=== PATIENT | female | born 1985 | race Caucasian/White ===

== ENCOUNTER 2021-07-14 11:14 | Inpatient (IN) ==
[2021-07-14] MEDS ORDERED: BUTORPHANOL 2 MG/ML VIAL IV PRN (12:24)
[2021-07-14] MEDS ORDERED: MEPERIDINE 50 MG/1 ML VIAL IV PRN (12:24)
[2021-07-14] MEDS ORDERED: ONDANSETRON 4 MG/2 ML VIAL IV PRN (12:24)
[2021-07-14 12:52] LABS: Basophils # 0.1 10*3/uL (0.0-0.2); Basophils % 0.4 % (0.0-0.8); Eosinophils # 0.1 10*3/uL (0.0-0.87); Eosinophils % 0.4 % (0.00-10.9); Hematocrit 30.4 VOL% (35.7-47.0); Hemoglobin 10.5 GM/DL (12.0-16.0); Immature Granulocytes % 2.4 %; Immature Granulocytes Absolute 0.33 #; Lymphocytes # 1.6 10*3/uL (1.4-4.0); Lymphocytes % 11.6 % (21.3-54.2); Mean Corpuscular HGB Conc 34.5 GM/DL (32-36); Mean Corpuscular Volume 90.2 FL (87-102); Mean Platelet Volume 9.9 FL (9.6-12.0); Neutrophils % 79.2 % (38.7-73.9); Platelet Count 230 T/CUMM (130-400); Red Blood Count 3.37 MC/CUMM (3.8-5.5); Red Cell Distribution Width 15.3 % (9.3-17.3); White Blood Count 13.8 T/CUMM (4-12)
[2021-07-14] MEDS: LACTATED RINGERS 1,000 ML IV SCH ×3 (12:57→18:27)
[2021-07-14] MEDS ORDERED: OXYTOCIN/LR 20 UNIT/1,000 ML BAG IV SCH (13:00)
[2021-07-14 13:45] LABS: Hepatitis B Surface Ag Quant 0.21 Index; Hepatitis B Surface Ag Result Non-Reactive (NonReactive)
[2021-07-14 13:55] LABS: Alanine Aminotransferase 18 U/L (13-56); Albumin 2.3 G/DL (3.4-5.0); Alkaline Phosphatase 186 U/L (45-117); Aspartate Amino Transferase 14 U/L (0-37); Bilirubin,Total < 0.39 MG/DL (0.20-1.00); Blood Urea Nitrogen 6 MG/DL (7-18); Carbon Dioxide 23 MMOL/L (21-32); Estimated Glom Filtration Rate 117 ML/MIN; Glucose 101 MG/DL (74-106); Osmolality,Calculated 280.1 MOS/KG (273-304); Potassium 2.8 MMOL/L (3.5-5.1); Sodium 142 MMOL/L (136-145); Total Protein 5.9 G/DL (6.4-8.2)
[2021-07-14] MEDS ORDERED: CITRIC ACID/SODIUM CITRATE 30 ML UDCUP PO ONE (13:56)
[2021-07-14] MEDS ORDERED: FAMOTIDINE 20 MG/2 ML VIAL IV ONE (13:56)
[2021-07-14] MEDS ORDERED: ePHEDrine 50 MG/ML VIAL IV PRN (13:57)
[2021-07-14] MEDS ORDERED: NALOXONE 0.4 MG/ML VIAL IV PRN (13:57)
[2021-07-14] MEDS ORDERED: ONDANSETRON 4 MG/2 ML VIAL IV ONE (13:57)
[2021-07-14] MEDS ORDERED: diphenhydrAMINE 50 MG/1 ML VIAL IV PRN (13:57)
[2021-07-14 14:15] LABS: HIV Antigen/Antibody Result Nonreactive (Nonreactive)
[2021-07-14] MEDS: fentaNYL 2 MCG/ROPIV 0.2% EPID 100 ML EPIDURAL SCH ×2 (14:45→22:42)
[2021-07-14 16:03] LABS: Bilirubin,Urine Negative (Negative); Blood, Urine Negative (Negative); Glucose,Urine (UA) Negative (Negative); Ketones,Urine Negative (Negative); Mucus,Urine Occasional /LPF (Occasional); Nitrite,Urine Negative (Negative); Protein,Urine Negative; Urine Appearance CLEAR (Clear); Urine Color Straw (Yellow); Urine Specific Gravity 1.003 (1.001-1.035); Urine Urobilinogen < 2.0 EU/DL (0.2-1.0)
[2021-07-14] MEDS: POTASSIUM CHLORIDE 20 MEQ TABLET PO PRN ×3 (16:07→23:08)
[2021-07-14] MEDS ORDERED: OXYTOCIN/LR 20 UNIT/1,000 ML BAG IV ONE (20:05)
[2021-07-14] MEDS ORDERED: TRANEXAMIC ACID 1,000 MG/10 ML VIAL ONE (20:05)
[2021-07-14] MEDS ORDERED: miSOPROStoL 200 MCG TABLET ONE (20:05)
[2021-07-14] MEDS ORDERED: CARBOPROST TROMETHAMINE 250 MCG/ML AMP IM ONE (20:06)
[2021-07-14] MEDS ORDERED: METHYLERGONOVINE 0.2 MG/1 ML AMP ONE (20:06)
[2021-07-14] MEDS ORDERED: SODIUM CHLORIDE 0.9% 100 ML IV ONE (20:08)
[2021-07-14] MEDS ORDERED: ACETAMINOPHEN 500 MG TABLET PO PRN (22:12)
[2021-07-15] MEDS: fentaNYL 2 MCG/ROPIV 0.2% EPID 100 ML EPIDURAL SCH (00:30)
[2021-07-15] MEDS: LACTATED RINGERS 1,000 ML IV SCH ×2 (00:34→04:04)
[2021-07-15] MEDS: POTASSIUM CHLORIDE 20 MEQ TABLET PO PRN (01:27)
[2021-07-15] MEDS ORDERED: LIDOCAINE 1% 50 ML VIAL ONE (04:20)
[2021-07-15 04:41] LABS: Cord Venous Blood HCO3 19.6 MMOL/L; Cord Venous Blood PCO2 35.1 MMHG; Cord Venous Blood PO2 41.6 MMHG
[2021-07-15] MEDS ORDERED: OXYTOCIN/LR 20 UNIT/1,000 ML BAG IV ONE (06:12)
[2021-07-15] MEDS ORDERED: LANOLIN 50% CREAM 0.3 OZ TUBE TOP PRN (06:12)
[2021-07-15] MEDS ORDERED: HYDROCORTISONE 2.5% RECTAL CREAM 30 GM TUBE TOP PRN (06:12)
[2021-07-15] MEDS ORDERED: WITCH HAZEL PADS 100/JAR TOP PRN (06:12)
[2021-07-15] MEDS ORDERED: oxyCODONE/ACETAMINOPHEN 5-325 MG TABLET PO PRN (06:12)
[2021-07-15] MEDS ORDERED: ONDANSETRON 4 MG/2 ML VIAL IV PRN (06:12)
[2021-07-15] MEDS ORDERED: MEASLES/MUMPS/RUBELLA VACCINE 0.5 ML VIAL SUBCUT ONE (06:12)
[2021-07-15] MEDS ORDERED: BISACODYL 10 MG SUPP RECTAL PRN (06:12)
[2021-07-15] MEDS ORDERED: BENZOCAINE 20%/MENTHOL 0.5% SPRAY 56 GM CAN TOP PRN (06:12)
[2021-07-15] MEDS ORDERED: DIPH/TET/ACEL PERT BOOSTER VACCINE 0.5 ML VIAL IM ONE (06:12)
[2021-07-15] MEDS ORDERED: RHO(D) IMMUNE GLOBULIN 300 MCG SYRINGE IM ONE (06:12)
[2021-07-15] MEDS: oxyCODONE/ACETAMINOPHEN 5-325 MG TABLET PO PRN ×2 (06:50→13:33)
[2021-07-15] MEDS: IBUPROFEN 800 MG TABLET PO PRN ×3 (06:51→20:54)
[2021-07-15 13:15] LABS: Basophils # 0.1 10*3/uL (0.0-0.2); Basophils % 0.3 % (0.0-0.8); Eosinophils % 0.1 % (0.00-10.9); Hematocrit 27.1 VOL% (35.7-47.0); Hemoglobin 9.6 GM/DL (12.0-16.0); Immature Granulocytes % 3.1 %; Immature Granulocytes Absolute 1.19 #; Lymphocytes # 1.1 10*3/uL (1.4-4.0); Mean Corpuscular HGB Conc 35.4 GM/DL (32-36); Mean Corpuscular Volume 90.6 FL (87-102); Monocytes % 2.6 % (1.7-12.7); Neutrophils % 90.9 % (38.7-73.9); Platelet Count 207 T/CUMM (130-400); Red Blood Count 2.99 MC/CUMM (3.8-5.5); Red Cell Distribution Width 15.6 % (9.3-17.3); White Blood Count 38.2 T/CUMM (4-12)
[2021-07-15] MEDS: DOCUSATE SODIUM 100 MG CAPSULE PO SCH ×2 (18:36→20:54)
[2021-07-16 05:29] LABS: Basophils # 0.1 10*3/uL (0.0-0.2); Basophils % 0.3 % (0.0-0.8); Eosinophils # 0.2 10*3/uL (0.0-0.87); Eosinophils % 0.8 % (0.00-10.9); Hematocrit 25.7 VOL% (35.7-47.0); Hemoglobin 8.8 GM/DL (12.0-16.0); Immature Granulocytes % 3.6 %; Immature Granulocytes Absolute 1.03 #; Lymphocytes # 2.2 10*3/uL (1.4-4.0); Lymphocytes % 7.6 % (21.3-54.2); Mean Corpuscular HGB Conc 34.2 GM/DL (32-36); Mean Corpuscular Volume 92.8 FL (87-102); Mean Platelet Volume 10.4 FL (9.6-12.0); Monocytes % 3.8 % (1.7-12.7); Neutrophils % 83.9 % (38.7-73.9); Platelet Count 202 T/CUMM (130-400); Red Blood Count 2.77 MC/CUMM (3.8-5.5); Red Cell Distribution Width 15.8 % (9.3-17.3); White Blood Count 28.7 T/CUMM (4-12)
[2021-07-16 06:10] LABS: Band Neutrophils 4 % (0-10); Lymphocytes 6 % (20-55); Metamyelocytes 1 %; Segmented Neutrophils 87 % (50-85); Total Cells Counted 100
[2021-07-16 06:11] LABS: Hypochromasia Slight; Platelet Estimate Adequate
[2021-07-16] MEDS: POTASSIUM CHLORIDE 20 MEQ TABLET PO PRN ×3 (07:00→11:27)
[2021-07-16] MEDS: IBUPROFEN 800 MG TABLET PO PRN ×2 (07:21→19:16)
[2021-07-16] MEDS: DOCUSATE SODIUM 100 MG CAPSULE PO SCH ×2 (09:23→21:32)
[2021-07-16] MEDS: FERROUS SULFATE 325 MG TABLET PO SCH ×2 (09:24→21:33)
[2021-07-16] MEDS: oxyCODONE/ACETAMINOPHEN 5-325 MG TABLET PO PRN (11:29)
[2021-07-17] MEDS: DOCUSATE SODIUM 100 MG CAPSULE PO SCH (08:29)
[2021-07-17] MEDS: FERROUS SULFATE 325 MG TABLET PO SCH (08:29)
[2021-07-17] MEDS: oxyCODONE/ACETAMINOPHEN 5-325 MG TABLET PO PRN (08:30)
[2021-07-17 11:15] VITALS: BP 137/80
[2021-07-17] MEDS ORDERED: MEASLES/MUMPS/RUBELLA VACCINE 0.5 ML VIAL SUBCUT ONE (13:10)
== END 2021-07-17 14:00 | disposition home or self-care (01) | DRG 807 ==
LOC: N.LDOUT 11:14 → N.LD 11:17 → N.OB 07-15 10:24
PROVIDERS: ADMIT Obstetrics & Gynecology; ATTEND Obstetrics & Gynecology